=== PATIENT | female | born 1980 | race Caucasian/White ===

== ENCOUNTER 2024-11-24 20:36 | Emergency (ER) | payer OTHER, SELFPAY ==
[2024-11-24] VITALS (13 sets, daily range): BP systolic 134–168; BP diastolic 89–115; PULSE 75–86; TEMP 36.4; O2SAT 96–100; BMI 25.7
--- NOTE | 2024-11-24 20:58 | ED_ITS ---
HPI - Recheck/Abnormal Lab/Rx General Chief Complaint: Recheck/Abnormal Lab/Rx Stated Complaint: BP Time Seen by Provider: 11/24/24 20:46 Source: patient Mode of arrival: walk-in Limitations: no limitations History of Present Illness HPI narrative: history of methamphetamine abuse. Last use one month ago. At [facility]. Past history of HTN. states initially she was not receiving her BP medications. States the physician did start her on metoprolol. He later added HCTZ 25. states she use to take HCTZ 50. States BP still spike today and cozaar was added. This evening she developed hives on her neck and she was brought here. states she does feel a little short of breath. Did have chest pain 3 days ago but no recurrence. No associated nausea or vomiting Related Data Home Medications ?Medication ?Instructions ?Recorded ?Confirmed buprenorphine 16 mg/0.32 mL mg subcut 11/24/24 solution,exten.rel.subcutaneous syringe (Brixadi Weekly) escitalopram oxalate 10 mg tablet mg 11/24/24 hydrochlorothiazide 25 mg tablet mg 11/24/24 lamotrigine 25 mg tablet mg 11/24/24 losartan 50 mg tablet mg 11/24/24 Allergies Allergy/AdvReac Type Severity Reaction Status Date / Time diphenhydramine (From AdvReac Mild restless Verified 11/24/24 20:58 Benadryl) hydroxyzine (From Vistaril) AdvReac Mild restless Verified 11/24/24 20:58 Review of Systems ROS Status of ROS 10 or more systems reviewed and unremark able except as noted in history and below PFSH PFSH Social History Little interest or pleasure in doing things: not at all Feeling down, depressed, or hopeless: not at all Exam Constitutional Vital Signs, click to edit/add: Last Vital Signs Temp 97.6 F 11/24/24 20:48 Pulse 79 11/24/24 23:00 Resp 14 11/24/24 23:00 BP 143/105 H 11/24/24 23:00 Pulse Ox 96 11/24/24 23:00 O2 Del Method Room Air 11/24/24 20:48 Common normals: no apparent distress, average body habitus, oriented x3, no limitations, healthy appearing, alert and well nourished [facility] Common normals: normocephalic and head/scalp atraumatic Eye Common normals: PERRL and EOMs intact bilaterally Respiratory Common normals: normal respiratory effort, no retractions, no use of accessory muscles and clear to auscultation bilaterally Cardio Common normals: regular rate, regular rhythm, S1 normal heart sound and S2 normal heart sound GI Common normals: Normal to inspection, nondistended, normoactive bowel sounds present, soft to palpation and non-tender Extremity Common normals: normal to inspection and full ROM Neuro Common normals: oriented x3, CN's II-XII intact bilaterally, moves all extremities and no focal motor deficits Psych Appearance: grossly normal Course Vital Signs Vital signs: Vital Signs Pulse Oximetry 100 11/24/24 20:44 Temperature 97.6 F 11/24/24 20:48 Pulse Rate 79 11/24/24 23:00 Respiratory Rate 14 11/24/24 23:00 Blood Pressure 143/105 H 11/24/24 23:00 Pulse Oximetry 96 11/24/24 23:00 Oxygen Delivery Method Room Air 11/24/24 20:48 MDM - Recheck/Abnormal Lab/Rx MDM Narrative Medical decision making narrative: patient presents concerned about her BP. Her BP improved and no intervention required at this visit. Advised to follow up with her doctor who is managing her BP. She describes a rash before arrival . No rash seen here. states she had chest pain 3 days ago. Workup unremarkable here including cxray. labs with mild anemia. Also found to have hypothyroidism. Advised to see her doctor regarding her thyroid. Discharged home asymptomatic Lab Data Labs: Lab Results 11/24/24 Range/Units 21:14 WBC 7.3 (4.0-11.0) 10^3/uL RBC 3.92 L (4.20-5.40) 10^6/uL Hgb 11.7 L (12.0-16.0) g/dL Hct 34.5 L (36.0-48.0) % MCV 88.0 (81.0-99.0) fL MCH 29.8 (26.7-34.0) pg MCHC 33.9 (29.9-35.2) g/dL RDW 12.7 (11.0-15.0) % Plt Count 352 (150-450) 10^3/uL MPV 9.7 (9.5-13.5) fL Neut % (Auto) 48.9 (43.0-75.0) % Lymph % (Auto) 32.1 (20.5-60.0) % Faulkner % (Auto) 12.1 H (1.7-12.0) % Eos % (Auto) 5.9 (0.9-7.0) % Baso % (Auto) 0.7 (0.2-2.0) % Neut # (Auto) 3.6 (1.4-6.5) 10^3/uL Lymph # (Auto) 2.3 (1.2-3.8) 10^3/uL Faulkner # (Auto) 0.9 H (0.3-0.8) 10^3/uL Eos # (Auto) 0.4 (0.0-0.7) 10^3/uL Baso # (Auto) 0.1 (0.0-0.1) 10^3/uL Abs Immat Gran (auto) 0.02 (0.00-0.03) 10^3/uL Imm/Tot Granulo (auto) 0.3 (0.0-0.5) % Sodium 137 (136-145) mmol/L Potassium 3.6 (3.5-5.1) mmol/L Chloride 101 (98-107) mmol/L Carbon Dioxide 28.8 (21.0-32.0) mmol/L Anion Gap 10.8 BUN 15.0 (7.0-18.0) mg/dL Creatinine 0.58 (0.55-1.02) mg/dL Est GFR ( Amer) >60 (>=60 mL/min/1.73m^2) Est GFR (Non-Af Amer) >60 (>=60 mL/min/1.73m^2) BUN/Creatinine Ratio 25.9 Glucose 89 (74-106) mg/dL Calcium 9.4 (8.5-10.1) mg/dL Troponin I High Sens 6.6 (4.0-51.3) pg/mL TSH 13.604 H (0.358-3.740) uIU/mL Discharge Plan Discharge Chief Complaint: Recheck/Abnormal Lab/Rx Clinical Impression: Hypothyroidism, Hypertension Patient Disposition: Home, Self-Care Prescriptions / Home Meds: No Action losartan 50 mg tablet lamotrigine 25 mg tablet hydrochlorothiazide 25 mg tablet escitalopram oxalate 10 mg tablet Brixadi 16 mg/0.32 mL solution, extended rel syringe SUBCUT Print Language: Spanish Instructions: Hypothyroidism (ED), Chronic Hypertension (ED) Referrals: Physician,Non-Staff, MD [Primary Care Provider] - 1 week
--- NOTE | 2024-11-24 21:02 | ECG_ITS ---
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 Measurements Intervals Clear Rate: 73 P: 55 HI: 190 QRS: 61 QRSD: 86 T: 44 QT: 386 QTc: 411 Interpretive Statements 1100 Sinus rhythm 8102 Low QRS voltage in chest leads 9120 Abnormal ECG No previous ECG available for comparison Electronically Signed On 11-25-2024 7:09:28 EDT by ALPHONSO LEUNG M.D.
[2024-11-24 21:32] LABS: Basophils Absolute Auto 0.1 10^3/uL (0.0-0.1); Basophils Percent Auto 0.7 % (0.2-2.0); Eosinophils Absolute Auto 0.4 10^3/uL (0.0-0.7); Eosinophils Percent Auto 5.9 % (0.9-7.0); Hematocrit 34.5 % (36.0-48.0); Hemoglobin 11.7 g/dL (12.0-16.0); Immature Granulocytes Abs Auto 0.02 10^3/uL (0.00-0.03); Immature Granulocytes Pct Auto 0.3 % (0.0-0.5); Lymphocytes Absolute Auto 2.3 10^3/uL (1.2-3.8); Lymphocytes Percent Auto 32.1 % (20.5-60.0); Mean Corpuscular HGB Conc 33.9 g/dL (29.9-35.2); Mean Corpuscular Hemoglobin 29.8 pg (26.7-34.0); Mean Platelet Volume 9.7 fL (9.5-13.5); Monocytes Absolute Auto 0.9 10^3/uL (0.3-0.8); Monocytes Percent Auto 12.1 % (1.7-12.0); Neutrophils Absolute Auto 3.6 10^3/uL (1.4-6.5); Neutrophils Percent Auto 48.9 % (43.0-75.0); Platelet Count 352 10^3/uL (150-450); Red Blood Count 3.92 10^6/uL (4.20-5.40); Red Cell Distribution Width 12.7 % (11.0-15.0); White Blood Count 7.3 10^3/uL (4.0-11.0)
[2024-11-24 21:53] LABS: Anion Gap 10.8; BUN Creatinine Ratio 25.9; Calcium 9.4 mg/dL (8.5-10.1); Carbon Dioxide 28.8 mmol/L (21.0-32.0); Chloride 101 mmol/L (98-107); Estimated GFR (African America >60 (>=60 mL/min/1.73m^2); Estimated GFR (Non-African Ame >60 (>=60 mL/min/1.73m^2); Glucose 89 mg/dL (74-106); Potassium 3.6 mmol/L (3.5-5.1); Sodium 137 mmol/L (136-145); Thyroid Stimulating Hormone 13.604 uIU/mL (0.358-3.740); Troponin I High Sensitivity 6.6 pg/mL (4.0-51.3)
--- NOTE | 2024-11-24 22:07 | PC.NURSE ---
this patient awake and alert sitting upright on the bed, I introduced myself to thgis patient. i informed this patient we are waiting on final results to from x-ray dept
--- NOTE | 2024-11-24 23:54 | PC.NURSE ---
I gave this patient verbal and written discharge orders and this patient voices yes to understanding these. at time of discharge this patient voices no concerns and show no signs of distress
== END 2024-11-24 23:56 | disposition home or self-care (01) ==
PROVIDERS: Emergency Provider Internal Medicine
DX: I10 Essential (primary) hypertension (principal); E03.9 Hypothyroidism, unspecified; F15.10 Other stimulant abuse, uncomplicated; L50.9 Urticaria, unspecified; Z79.899 Other long term (current) drug therapy; D64.9 Anemia, unspecified; R07.9 Chest pain, unspecified
CPT/HCPCS: 36415; 71045; 80048; 84443; 84484; 85025; 93005; 99285